=== PATIENT | female | born 1980 | race Caucasian/White ===

== ENCOUNTER 2016-09-11 21:53 | Emergency (ER) | payer OTHER ==
[2016-09-11 22:08] VITALS: BP 139/83; PULSE 73; RESP 18; TEMP 98.2
--- NOTE | 2016-09-11 22:22 | ED ---
General Adult HPI - General Chief complaint: Needlestick/Exposure Stated complaint: IHS/Needle Stick Time Seen by Provider: 09/11/16 22:08 Source: patient, RN notes reviewed Mode of arrival: ambulatory Limitations: no limitations - History of Present Illness Initial comments: 36-year-old female presents to the emergency department with a chief complaint of needle stick injury to the left hand. Patient states That work today. Patient states she noticed some throbbing to the hand. Patient states she has not had any other symptoms at this time. Patient is up-to-date on vaccinations. Patient denies any recent fever, chills, shortness of breath, chest pain, back pain, abdominal pain, nausea vomiting, numbness or tingling, dysuria or hematuria, constipation or diarrhea, headaches or visual changes, or any other current symptoms. - Related Data Home Medications Medication Instructions Recorded Confirmed Omeprazole 1 tab PO DAILY 09/11/16 09/11/16 Allergies Allergy/AdvReac Type Severity Reaction Status Date / Time No Known Allergies Allergy Verified 09/11/16 22:06 Review of Systems ROS Statement: Those systems with pertinent positive or pertinent negative responses have been documented in the HPI. ROS Other: All systems not noted in ROS Statement are negative. Past Medical History Past Medical History: GERD/Reflux History of Any Multi-Drug Resistant Organisms: None Reported Past Surgical History: Tonsillectomy Past Psychological History: No Psychological Hx Reported Smoking Status: Never smoker Past Alcohol Use History: None Reported Past Drug Use History: None Reported General Exam Limitations: no limitations General appearance: alert, in no apparent distress ENT exam: Present: normal exam, mucous membranes moist Neck exam: Present: normal inspection. Absent: tenderness, meningismus, lymphadenopathy Respiratory exam: Present: normal lung sounds bilaterally. Absent: respiratory distress, wheezes, rales, rhonchi, stridor Left Forearm Wrist exam: Present: normal inspection, full ROM. Absent: tenderness, swelling Hand Wrist exam: Present: full ROM, other (Does appear to have a puncture wound to the left home). Absent: tenderness, swelling Neurological exam: Present: alert, oriented X3 Psychiatric exam: Present: normal affect Skin exam: Present: warm, dry, intact, normal color. Absent: rash Course Vital Signs 09/11/16 22:06 Temperature 98.2 F Pulse Rate 73 Respiratory 18 Rate Blood Pressure 139/83 O2 Sat by Pulse 98 Oximetry - Reevaluation(s) Reevaluation #1: 09/11/16 22:33 Time we are pending patient's results. These will be followed up on. Medical Decision Making - Medical Decision Making 36-year-old female presents for needlestick injury. This time we fill out the appropriate paperwork. We did discuss follow-up and return parameters. We discussed all the patient's questions. She stated she understood all questions have been answered. She will be discharged home. Disposition Clinical Impression: Needlestick injury accident Disposition: HOME SELF-CARE Condition: Stable Instructions: Needle Stick Injuries (ED) Additional Instructions: Please follow up with family doctor if symptoms have not improved over the next two days. Please return to the emergency room if your symptoms increase or worsen or for any other concerns. Referrals: Latanya Guevara MD [Primary Care Provider] - 1-2 days Time of Disposition: 22:33
== END 2016-09-11 22:41 | disposition home or self-care (01) ==
LOC: EC 21:53
DX: S61.432A Puncture wound without foreign body of left hand, initial encounter (principal); Z77.21 Contact with and (suspected) exposure to potentially hazardous body fluids; W46.0XXA Contact with hypodermic needle, initial encounter; Y99.0 Civilian activity done for income or pay; Y92.69 Other specified industrial and construction area as the place of occurrence of the external cause
CPT/HCPCS: 99282

== ENCOUNTER 2018-11-19 10:57 | Emergency (ER) | payer OTHER ==
[2018-11-19 11:15] VITALS: BP 133/90; PULSE 78; RESP 20; TEMP 98.6
--- NOTE | 2018-11-19 11:33 | ED ---
General Adult HPI - General Chief complaint: Needlestick/Exposure Stated complaint: NEEDLESTICK Time Seen by Provider: 11/19/18 11:15 Source: patient, RN notes reviewed Mode of arrival: ambulatory Limitations: no limitations - History of Present Illness Initial comments: Alesha is a 38-year-old female with a past medical history of GERD who presents to the emergency department for a chief complaint of needle stick injury. 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 States she is here for blood testing. Denies any other complaints. States she is wanting to go back to work [employer].Patient has no other complaints at this time including shortness of breath, chest pain, abdominal pain, nausea or vomiting, headache, or visual changes. - Related Data Home Medications Medication Instructions Recorded Confirmed Apri 1 tab PO HS 11/19/18 11/19/18 Allergies Allergy/AdvReac Type Severity Reaction Status Date / Time No Known Allergies Allergy Verified 11/19/18 11:21 Review of Systems ROS Statement: Those systems with pertinent positive or pertinent negative responses have been documented in the HPI. ROS Other: All systems not noted in ROS Statement are negative. Past Medical History Past Medical History: GERD/Reflux History of Any Multi-Drug Resistant Organisms: None Reported Past Surgical History: Tonsillectomy Additional Past Surgical History / Comment(s): D&C Past Psychological History: No Psychological Hx Reported Smoking Status: Never smoker Past Alcohol Use History: Occasional Past Drug Use History: None Reported General Exam Limitations: no limitations General appearance: alert, in no apparent distress Head exam: Present: atraumatic, normocephalic, normal inspection Eye exam: Present: normal appearance, PERRL, EOMI. Absent: scleral icterus, conjunctival injection, periorbital swelling ENT exam: Present: normal exam, mucous membranes moist Neck exam: Present: normal inspection, full ROM. Absent: tenderness, meningismus, lymphadenopathy Respiratory exam: Present: normal lung sounds bilaterally. Absent: respiratory distress, wheezes, rales, rhonchi, stridor Cardiovascular Exam: Present: regular rate, normal rhythm, normal heart sounds. Absent: systolic murmur, diastolic murmur, rubs, gallop, clicks Extremities exam: Present: full ROM (Full range of motion in the left second digit), normal capillary refill (Capillary Refill less than 2 seconds, radial pulse 2+ and left upper extremity.), other (No significant injury noted to left second digit finger pad) Neurological exam: Present: alert, oriented X3, CN II-XII intact Psychiatric exam: Present: normal affect, normal mood Course Vital Signs 11/19/18 11:12 Temperature 98.6 F Pulse Rate 78 Respiratory 20 Rate Blood Pressure 133/90 O2 Sat by Pulse 98 Oximetry Medical Decision Making - Medical Decision Making Alesha is a 38-year-old female presenting to the emergency department with needlestick injury of the left second digit. 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 Patient's blood was drawn and sent to lab as well. Patient is up-to-date on tetanus. Examination does not reveal any obvious injury to the left second digit. Patient wishes to return back to work rather than wait for results in the ER. Patient will follow up on these results with lab. She will return here if she has any worsening symptoms or signs of infection. Disposition Clinical Impression: Needle stick injury of finger Disposition: HOME SELF-CARE Condition: Good Instructions (If sedation given, give patient instructions): Needle Stick Injuries (ED) Additional Instructions: Please follow up on lab results. Please follow up with primary care in 1-2 days. Return to the ER if you have any worsening symptoms or signs of infection. Is patient prescribed a controlled substance at d/c from ED?: No Referrals: Latanya Guevara MD [Primary Care Provider] - 1-2 days Time of Disposition: 11:32
== END 2018-11-19 11:50 | disposition home or self-care (01) ==
LOC: EC 10:57
DX: S61.201A Unspecified open wound of left index finger without damage to nail, initial encounter (principal); Z79.3 Long term (current) use of hormonal contraceptives; W46.0XXA Contact with hypodermic needle, initial encounter; Y92.234 Operating room of hospital as the place of occurrence of the external cause; Y99.0 Civilian activity done for income or pay
CPT/HCPCS: 99283

== ENCOUNTER → 2020-03-04 | Outpatient (CLI) | payer MEDICAID | END | disposition home or self-care (01) | LOC: LABWHC1 15:30 | PROVIDERS: ATTEND Pediatrics Pediatric Infectious Diseases | DX: Z03.818 Encounter for observation for suspected exposure to other biological agents ruled out (principal) | CPT/HCPCS: U0003; C9803 ==

== ENCOUNTER → 2020-03-09 | Outpatient (CLI) | payer MEDICAID | END | disposition home or self-care (01) | LOC: LABWHC1 10:21 | PROVIDERS: ATTEND Pediatrics Pediatric Infectious Diseases | DX: Z03.818 Encounter for observation for suspected exposure to other biological agents ruled out (principal) | CPT/HCPCS: U0003; C9803 ==

== ENCOUNTER → 2020-05-28 | Outpatient (CLI) | payer MEDICAID ==
--- NOTE | 2020-05-28 09:01 | MR ---
EXAMINATION TYPE: MR brain and iac wo/w con DATE OF EXAM: 05/28/2020 COMPARISON: NONE HISTORY: Vertigo TECHNIQUE: Multiplanar, multisequence images of the brain and brainstem as well as internal auditory canals are all performed without and with IV contrast, utilizing 8 mL intravenous Gadavist . FINDINGS: Diffusion weighted images demonstrate no evidence of a recent infarct or other diffusion ab normality. There is no worrisome extra-axial fluid collection. Ventricles and sulci within normal li mits in size for patient's age. Scattered foci of T2 hyperintensity are seen throughout the white mat ter bilaterally. Approximately 10 small to tiny scattered lesions. Lesions nonspecific in appearance and distribution. Midline structures demonstrate normal morphology. The craniocervical junction appears within normal limits. Post contrast images demonstrate no abnormal enhancement. The dural venous sinuses appear pa tent. The visualized sinuses are clear and the globes are intact. No suspicious fluid signal seen in the mastoid air cells bilaterally. The vestibulocochlear complexes are symmetric and felt within normal limits. There is no suspicious enhancing cerebellopontine angle mass identified bilaterally. IMPRESSION: No suspicious findings seen to cover patient's symptoms of vertigo. Mild nonspecific whit e matter changes without abnormal enhancement, Somewhat prominent for patient's chronologic age. Diff erential includes demyelinating disease, altered vascular mechanics were correlated to product of seda ailyn headaches, and infectious and/or inflammatory etiologies. Correlate clinically.
== END | disposition home or self-care (01) ==
LOC: RADMRIMAIN 07:40
PROVIDERS: ATTEND Otolaryngology Sleep Medicine
DX: R90.82 White matter disease, unspecified (principal)
CPT/HCPCS: 70553; A9585

== ENCOUNTER 2021-02-04 07:37 | Emergency (ER) | payer MEDICAID ==
[2021-02-04 07:40] VITALS: RESP 18; TEMP 99
[2021-02-04] MEDS ORDERED: KETOROLAC 15 MG/ML 1 ML VIAL IVP STA (07:52)
[2021-02-04] MEDS ORDERED: SODIUM CHLORIDE 0.9% 500 ML 500 ML IV STA (07:52)
--- NOTE | 2021-02-04 07:55 | ED ---
General Adult HPI - General Chief complaint: Abdominal Pain Stated complaint: abd pain Time Seen by Provider: 02/04/21 07:40 Source: patient, RN notes reviewed, old records reviewed Mode of arrival: ambulatory Limitations: no limitations - History of Present Illness Initial comments: This a 40-year-old female presents emergency Department complaining of right upper quadrant abdominal pain intermittently since January 14. Patient states the pain radiates around to her side and her back. Patient states she has been nauseous on occasion. Patient denies any fever chills. Patient denies any lower abdominal pain. Patient denies any dysuria hematuria urinary frequency. Patient denies chest pain or difficulty breathing - Related Data Home Medications Medication Instructions Recorded Confirmed Apri 1 tab PO HS 11/19/18 11/19/18 Allergies Allergy/AdvReac Type Severity Reaction Status Date / Time No Known Allergies Allergy Verified 11/19/18 11:21 Review of Systems ROS Statement: Those systems with pertinent positive or pertinent negative responses have been documented in the HPI. ROS Other: All systems not noted in ROS Statement are negative. Past Medical History Past Medical History: GERD/Reflux Additional Past Medical History / Comment(s): migraine based vertigo History of Any Multi-Drug Resistant Organisms: None Reported Past Surgical History: Tonsillectomy Additional Past Surgical History / Comment(s): D&C Past Psychological History: No Psychological Hx Reported Smoking Status: Never smoker Past Alcohol Use History: Occasional Past Drug Use History: None Reported General Exam - General Exam Comments Initial Comments: GENERAL: Patient is well-developed and well-nourished. Patient is nontoxic and well- hydrated and is in mild distress. ENT: Neck is soft and supple. No significant lymphadenopathy is noted. Oropharynx is clear. Moist mucous membranes. Neck has full range of motion without eliciting any pain. EYES: The sclera were anicteric and conjunctiva were pink and moist. Extraocular movements were intact and pupils were equal round and reactive to light. Eyel ids were unremarkable. PULMONARY: Unlabored respirations. Good breath sounds bilaterally. No audible rales rhonchi or wheezing was noted. CARDIOVASCULAR: There is a regular rate and rhythm without any murmurs gallops or rubs. ABDOMEN: Mild right upper quadrant abdominal pain SKIN: Skin is clear with no lesions or rashes and otherwise unremarkable. NEUROLOGIC: Patient is alert and oriented x3. Cranial nerves II through XII are grossly intact. Motor and sensory are also intact. Normal speech, volume and content. Symmetrical smile. MUSCULOSKELETAL: Normal extremities with adequate strength and full range of motion. LYMPHATICS: No significant lymphadenopathy is noted PSYCHIATRIC: Normal psychiatric evaluation. Limitations: no limitations Course Vital Signs 02/04/21 07:38 Temperature 99.0 F Pulse Rate 95 Respiratory 18 Rate Blood Pressure 159/99 O2 Sat by Pulse 99 Oximetry Medical Decision Making - Medical Decision Making Patient's ultrasound of the gallbladder was normal. One taken the room to reevaluate the patient she states she can feel the pain a little still but she was comfortable going home and follow-up with Dr. Dyer. Patient states she has appointment with her on Sunday. Patient understood that she could come back if she had increased pain or new symptoms. Patient did not want any pain meds or nausea meds to go home with. - Lab Data Result diagrams: 02/04/21 07:57 02/04/21 07:57 Lab Results 02/04/21 02/04/21 02/04/21 Range/Units 07:57 07:57 07:57 WBC 9.2 (3.8-10.6) k/uL RBC 4.91 (3.80-5.40) m/uL Hgb 13.5 (11.4-16.0) gm/dL Hct 40.8 (34.0-46.0) % MCV 83.0 (80.0-100.0) fL MCH 27.5 (25.0-35.0) pg MCHC 33.2 (31.0-37.0) g/dL RDW 13.1 (11.5-15.5) % Plt Count 300 (150-450) k/uL MPV 7.4 Neutrophils % 57 % Lymphocytes % 35 % Monocytes % 4 % Eosinophils % 2 % Basophils % 0 % Neutrophils # 5.2 (1.3-7.7) k/uL Lymphocytes # 3.2 (1.0-4.8) k/uL Monocytes # 0.4 (0-1.0) k/uL Eosinophils # 0.2 (0-0.7) k/uL Basophils # 0.0 (0-0.2) k/uL Sodium (137-145) mmol/L Potassium (3.5-5.1) mmol/L Chloride (98-107) mmol/L Carbon Dioxide (22-30) mmol/L Anion Gap mmol/L BUN (7-17) mg/dL Creatinine (0.52-1.04) mg/dL Est GFR (CKD-EPI)AfAm (>60 ml/min/1.73 sqM) Est GFR (CKD-EPI)NonAf (>60 ml/min/1.73 sqM) Glucose (74-99) mg/dL Plasma Lactic Acid Timothy (0.7-2.0) mmol/L Calcium (8.4-10.2) mg/dL Total Bilirubin (0.2-1.3) mg/dL AST (14-36) U/L ALT (4-34) U/L Alkaline Phosphatase (38-126) U/L Total Protein (6.3-8.2) g/dL Albumin (3.5-5.0) g/dL Amylase (30-110) U/L Lipase (23-300) U/L Urine Color Light Yellow Urine Appearance Clear (Clear) Urine pH 5.5 (5.0-8.0) Ur Specific [place] 1.009 (1.001-1.035) Urine Protein Negative (Negative) Urine Glucose (UA) Negative (Negative) Urine Ketones Negative (Negative) Urine Blood Small H (Negative) Urine Nitrite Negative (Negative) Urine Bilirubin Negative (Negative) Urine Urobilinogen <2.0 (<2.0) mg/dL Ur Leukocyte Esterase Negative (Negative) Urine RBC <1 (0-5) /hpf Urine WBC 1 (0-5) /hpf Ur Squamous Epith Cells 3 (0-4) /hpf Urine Bacteria Rare H (None) /hpf Urine Mucus Rare H (None) /hpf Urine HCG, Qual Not Detected (Not Detectd) 02/04/21 02/04/21 Range/Units 07:57 07:57 WBC (3.8-10.6) k/uL RBC (3.80-5.40) m/uL Hgb (11.4-16.0) gm/dL Hct (34.0-46.0) % MCV (80.0-100.0) fL MCH (25.0-35.0) pg MCHC (31.0-37.0) g/dL RDW (11.5-15.5) % Plt Count (150-450) k/uL MPV Neutrophils % % Lymphocytes % % Monocytes % % Eosinophils % % Basophils % % Neutrophils # (1.3-7.7) k/uL Lymphocytes # (1.0-4.8) k/uL Monocytes # (0-1.0) k/uL Eosinophils # (0-0.7) k/uL Basophils # (0-0.2) k/uL Sodium 139 (137-145) mmol/L Potassium 3.9 (3.5-5.1) mmol/L Chloride 107 (98-107) mmol/L Carbon Dioxide 20 L (22-30) mmol/L Anion Gap 12 mmol/L BUN 11 (7-17) mg/dL Creatinine 0.55 (0.52-1.04) mg/dL Est GFR (CKD-EPI)AfAm >90 (>60 ml/min/1.73 sqM) Est GFR (CKD-EPI)NonAf >90 (>60 ml/min/1.73 sqM) Glucose 101 H (74-99) mg/dL Plasma Lactic Acid Timothy 1.9 (0.7-2.0) mmol/L Calcium 9.3 (8.4-10.2) mg/dL Total Bilirubin 0.7 (0.2-1.3) mg/dL AST 18 (14-36) U/L ALT 14 (4-34) U/L Alkaline Phosphatase 48 (38-126) U/L Total Protein 7.1 (6.3-8.2) g/dL Albumin 4.1 (3.5-5.0) g/dL Amylase 106 (30-110) U/L Lipase 78 (23-300) U/L Urine Color Urine Appearance (Clear) Urine pH (5.0-8.0) Ur Specific [place] (1.001-1.035) Urine Protein (Negative) Urine Glucose (UA) (Negative) Urine Ketones (Negative) Urine Blood (Negative) Urine Nitrite (Negative) Urine Bilirubin (Negative) Urine Urobilinogen (<2.0) mg/dL Ur Leukocyte Esterase (Negative) Urine RBC (0-5) /hpf Urine WBC (0-5) /hpf Ur Squamous Epith Cells (0-4) /hpf Urine Bacteria (None) /hpf Urine Mucus (None) /hpf Urine HCG, Qual (Not Detectd) Disposition Clinical Impression: Right upper quadrant abdominal pain Disposition: HOME SELF-CARE Instructions (If sedation given, give patient instructions): Abdominal Pain (ED) Is patient prescribed a controlled substance at d/c from ED?: No Referrals: Latanya Guevara MD [Primary Care Provider] - 1-2 days Time of Disposition: 10:07
[2021-02-04 08:15] LABS: Basophils % (A) 0 %; Eosinophils # (A) 0.2 k/uL (0-0.7); Eosinophils % (A) 2 %; HCT 40.8 % (34.0-46.0); HGB 13.5 gm/dL (11.4-16.0); Lymphocytes # (A) 3.2 k/uL (1.0-4.8); Lymphocytes % (A) 35 %; MCH 27.5 pg (25.0-35.0); MCHC 33.2 g/dL (31.0-37.0); Mean Platelet Volume 7.4; Monocytes # (A) 0.4 k/uL (0-1.0); Monocytes % (A) 4 %; Neutrophils # (A) 5.2 k/uL (1.3-7.7); Neutrophils % (A) 57 %; Platelet Count 300 k/uL (150-450); RBC 4.91 m/uL (3.80-5.40); RDW 13.1 % (11.5-15.5); WBC 9.2 k/uL (3.8-10.6)
[2021-02-04 08:33] LABS: ALT 14 U/L (4-34); AST 18 U/L (14-36); African American GFR (CKD) >90 (>60 ml/min/1.73 sqM); Albumin 4.1 g/dL (3.5-5.0); Alkaline Phosphatase 48 U/L (38-126); Amylase 106 U/L (30-110); Anion Gap 12 mmol/L; Blood Urea Nitrogen 11 mg/dL (7-17); Calcium 9.3 mg/dL (8.4-10.2); Carbon Dioxide 20 mmol/L (22-30); Chloride 107 mmol/L (98-107); Glucose 101 mg/dL (74-99); Lipase 78 U/L (23-300); Non-African American GFR(CKD) >90 (>60 ml/min/1.73 sqM); Potassium 3.9 mmol/L (3.5-5.1); Sodium 139 mmol/L (137-145); Total Bilirubin 0.7 mg/dL (0.2-1.3); Total Protein 7.1 g/dL (6.3-8.2)
--- NOTE | 2021-02-04 09:11 | US ---
EXAMINATION TYPE: US gallbladder DATE OF EXAM: 02/04/2021 COMPARISON: NONE CLINICAL HISTORY: Right upper quadrant abdominal pain. EXAM MEASUREMENTS: Liver Length: 14.5 cm Gallbladder Wall: 0.2 cm CBD: 0.3 cm Right Kidney: 10.2x4.6x4.3 cm Pancreas: wnl in its visualized portions Liver: wnl , there is no dilated intra or extrahepatic biliary duct Gallbladder: wnl Evidence for sonographic Emerson's sign: No CBD: wnl Right Kidney: wnl There is no ascites. IMPRESSION: No abnormality evident to account for patient's symptoms, somewhat limited exam
--- NOTE | 2021-02-04 09:42 | XR ---
KUB HISTORY: Nausea and pain Frontal KUB and 2 images There are overlying artifacts. Lung bases are clear. There is no evident bowel obstruction or pneumop eritoneum. There are air-fluid levels without bowel distention. There is a slight spinal curvature. N o abnormal calcification. IMPRESSION: Correlate for enteritis or ileus. Follow-up as indicated.
[2021-02-04 09:47] LABS: Appearance,Urine Clear (Clear); Bacteria,Urine Rare /hpf; Bilirubin,Urine Negative (Negative); Blood,Urine Small (Negative); Color,Urine Light Yellow; Glucose,Urine (UA) Negative (Negative); Ketones,Urine Negative (Negative); Leukocyte Esterase,Urine Negative (Negative); Mucus,Urine Rare /hpf; Nitrite,Urine Negative (Negative); PH, Urine 5.5 (5.0-8.0); Protein,Urine Negative (Negative); RBC,Urine <1 /hpf (0-5); Specific Gravity,Urine 1.009 (1.001-1.035); Squamous Epithelial Cell,Urine 3 /hpf (0-4); Urobilinogen,Urine <2.0 mg/dL (<2.0); WBC,Urine 1 /hpf (0-5)
[2021-02-04 10:34] VITALS: BP 125/93; PULSE 80
== END 2021-02-04 10:34 | disposition home or self-care (01) ==
LOC: EC 07:37
DX: R10.11 Right upper quadrant pain (principal); K21.9 Gastro-esophageal reflux disease without esophagitis
CPT/HCPCS: 36415; 74018; 76705; 80053; 81001; 81025; 82150; 83605; 83690; 85025; 99284

== ENCOUNTER 2021-02-11 06:15 | Day surgery (SDC) | payer MEDICAID ==
[2021-02-09 10:31] VITALS: BMI 31.4
[~2021-02-11 06:15] MED LIST: HEPARIN SODIUM,PORCINE/PF 5,000 UNIT/0.5 ML SYRINGE SQ PRN
[2021-02-11] MEDS ORDERED: MIDAZOLAM 2 MG/2 ML VIAL IV PRN (06:26)
[2021-02-11] MEDS ORDERED: ONDANSETRON 4 MG/2 ML VIAL IVP ONE ×2 (06:26→09:07)
[2021-02-11] MEDS ORDERED: DEXAMETHASONE SOD PHOSPHATE 4 MG/ML 1 ML VIAL IV ONE (06:26)
[2021-02-11] MEDS ORDERED: SCOPOLAMINE 1.5MG/72HR PATCH TRANSDERM ONE (06:26)
[2021-02-11] MEDS: LACTATED RINGERS 1,000 ML IV SCH ×2 (07:04→11:35)
[2021-02-11] MEDS ORDERED: LIDOCAINE 1% (10MG/ML) FOR IV START INTRADERMA ONE (07:05)
[2021-02-11] MEDS ORDERED: PROPOFOL 10 MG/ML 20 ML VIAL IV ONE (07:30)
[2021-02-11] MEDS ORDERED: ROCURONIUM 10 MG/ML (5 ML VIAL) IV ONE (07:30)
[2021-02-11] MEDS ORDERED: INDOCYANINE GREEN 25 MG VIAL IV ONE (07:30)
[2021-02-11] MEDS ORDERED: GLYCOPYRROLATE 0.2 MG/ML 2 ML VIAL ONE (07:30)
[2021-02-11] MEDS ORDERED: fentaNYL (PF) 50 MCG/ML 2 ML AMP ONE (07:30)
[2021-02-11] MEDS ORDERED: MIDAZOLAM 2 MG/2 ML VIAL ONE (07:30)
[2021-02-11] MEDS ORDERED: NEOSTIGMINE 1 MG/ML 10 ML VIAL ONE (07:30)
[2021-02-11] MEDS ORDERED: SUCCINYLCHOLINE CHLORIDE 100 MG/5 ML SYR IV ONE (07:30)
[2021-02-11] MEDS ORDERED: HYDROmorphone (PF) 1 MG/ML ONE (07:30)
[2021-02-11] MEDS ORDERED: KETOROLAC 15 MG/ML 1 ML VIAL ONE (07:30)
[2021-02-11] MEDS ORDERED: LIDOCAINE 1% INJ 10MG/ML (20 ML MDV) ONE (07:30)
--- NOTE | 2021-02-11 07:58 | P.GSHP ---
History of Present Illness H&P Date: 02/11/21 CHIEF COMPLAINT: Cholecystitis HISTORY OF PRESENT ILLNESS: The patient is a 40-year-old female who presents with history of epigastric including right upper quadrant abdominal pain. She underwent diagnostic studies for the gallbladder. Separately her clinical picture is consistent with cholecystitis. Now she presents for surgical intervention. PAST MEDICAL HISTORY: Please see list PAST SURGICAL HISTORY: Please see list MEDICATIONS: Please see list ALLERGIES: Denies. SOCIAL HISTORY: No illicit drug use or recent tobacco use FAMILY HISTORY: Pertinent for gallbladder disease REVIEW OF ORGAN SYSTEMS: CONSTITUTIONAL: No reports of fevers or chills. HEENT: Denies any troubles with the vision or hearing. ENDOCRINE: Denies hypothyroidism. No diabetes. RESPIRATORY: No recent pneumonias. CARDIOVASCULAR: Denies chest pain or palpitations. Has hypertensive heart disease. GI: No blood in stools or constipation. MUSCULOSKELETAL: Has occasional joint pain including back pain. NEURO: No seizure disorders or headaches. No recent stroke. PSYCH: No depression or suicidal ideation. HEMATOLOGIC: No personal or family history of DVTs or pulmonary emboli. PHYSICAL EXAM: VITAL SIGNS: Afebrile vital signs stable GENERAL: Well-developed pleasant male in no acute distress. HEENT: No scleral icterus. Extraocular movements grossly intact. Moist buccal mucosa. NECK: Supple without lymphadenopathy. CHEST: Unlabored respirations. Equal bilateral excursions. CARDIOVASCULAR: Regular rate regular rhythm rhythm. Distal 2+ pulses. ABDOMEN: Soft, nondistended. Tender right upper quadrant. MUSCULOSKELETAL: No clubbing, cyanosis, or edema. NEURO : No focal or lateralizing signs. Cranial nerves II-12 within normal limits. PSYCH: Alert and oriented to person, place and time. SKIN: Well perfused. Good skin turgor. ASSESSMENT: 1. Chronic cholecystitis PLAN: 1. Will need a robotic cholecystectomy possible open. Benefits and risks were described. 2. Heparin for DVT prophylaxis 5000 units. 3. Antibiotic prophylaxis. 4 Past Medical History Past Medical History: GERD/Reflux Additional Past Medical History / Comment(s): migraine based vertigo, gallbladder- nonfunctioning, elevated triglycerides, "pre cervical cancer" History of Any Multi-Drug Resistant Organisms: None Reported Past Surgical History: Tonsillectomy Additional Past Surgical History / Comment(s): D&C Past Anesthesia/Blood Transfusion Reactions: Family History of Problems w/ Anesthesia, Motion Sickness Additional Past Anesthesia/Blood Transfusion Reaction / Comment(s): both parents get laryngospasm Smoking Status: Never smoker - Past Family History Mother Family Medical History: Cancer Medications and Allergies Home Medications Medication Instructions Recorded Confirmed Type Ascorbic Acid [Vitamin C] 500 mg PO DAILY 02/09/21 02/11/21 History Cholecalciferol (Vitamin D3) 250 mcg PO DAILY 02/09/21 02/11/21 History [Vitamin D3 (125 MCG = 5,000 IU)] Cyanocobalamin (Vitamin B-12) 5,000 mcg PO DAILY 02/09/21 02/11/21 History [Vitamin B12] Enskyce 1 tab PO HS 02/09/21 02/11/21 History Magnesium 250 mg PO DAILY 02/09/21 02/11/21 History [place]-3 Fatty Acids/Fish Oil [Fish 1 each PO DAILY 02/09/21 02/11/21 History Oil 1,000 mg Softgel] Sumatriptan(Dose Unknown) 1 tab PO DIRECTED PRN 02/09/21 02/11/21 History Allergies Allergy/AdvReac Type Severity Reaction Status Date / Time No Known Allergies Allergy Verified 02/11/21 06:57 Surgical - Exam Vital Signs Temp Pulse Resp BP Pulse Ox 97.3 F L 94 16 130/80 98 02/11/21 06:55 02/11/21 06:55 02/11/21 06:55 02/11/21 06:55 02/11/21 06:55
[2021-02-11] MEDS ORDERED: LIDOCAINE 1%-EPI 1:100,000 20 ML VIAL SQ ONE (08:11)
[2021-02-11 09:03] VITALS: TEMP 98.4
[2021-02-11] MEDS ORDERED: ONDANSETRON 4 MG/2 ML VIAL ONE (09:04)
[2021-02-11] MEDS ORDERED: DEXAMETHASONE SOD PHOSPHATE 10 MG/ML 1 ML VIAL IV PRN (09:07)
[2021-02-11] MEDS: HYDROmorphone 0.5 MG/0.5 ML SYRINGE IVP PRN ×2 (09:08→09:17)
[2021-02-11] MEDS ORDERED: GABAPENTIN 300 MG CAP PO ONE (09:09)
[2021-02-11] MEDS ORDERED: KETOROLAC 15 MG/ML 1 ML VIAL IVP SCH (09:09)
--- NOTE | 2021-02-11 09:14 | P.OP ---
Date of Procedure: 02/11/21 Description of Procedure: SURGEON: JENNIFER HERNANDEZ MD PREOPERATIVE DIAGNOSES: 1. Chronic cholecystitis 2. Right upper quadrant abdominal pain 3. Family history gallbladder disease 4. Obesity due to excess calories, BMI 31.9 5. Migraines 6. Family history ovarian cancer POSTOPERATIVE DIAGNOSES: 1. Chronic cholecystitis 2. Right upper quadrant abdominal pain 3. Family history gallbladder disease 4. Obesity due to excess calories, BMI 31.9 5. Migraines 6. Family history ovarian cancer OPERATION: Robotic-assisted da Liliana Xi laparoscopic cholecystectomy, multiport with FIREFLY ESTIMATED BLOOD LOSS: 5 mL. SPECIMENS REMOVED: Gallbladder. COMPLICATIONS: None. OPERATIVE FINDINGS: 1. Bulbous gallbladder features of chronic cholecystitis 2. Uterus unremarkable 3. Bilateral ovaries unremarkable INDICATIONS: The patient is a 40-year-old female who presents with chronic cholecystitis including right upper quadrant abdominal pain. Robotic assisted laparoscopic approach was described. Benefits and risks of the procedure including but not limited to bleeding, infection, injury to the biliary tree was described. Informed consent was obtained. DESCRIPTION OF PROCEDURE: Patient was brought to the operating room, placed in supine position. After general induction, the abdomen had been prepped and draped in standard sterile fashion. The robotic da Liliana XI system was primed. After a timeout protocol was performed, the patient had been prepped and draped in standard sterile fashion. The patient was injected with indocyanine green. A 5 mm 0 degrees laparoscopic trocar entry was performed along the left upper quadrant. The abdomen insufflated to 15 mmHg pressure which was tolerated well. Diagnostic laparoscopy demonstrated no injury to bowel viscera or mesentery. The liver surface was unremarkable. Next, two 8 mm robotic ports were placed al antolin the right upper abdomen. The camera 8-mm port was maintained along the epigastrium. Another 8 mm port was placed along the left upper abdominal wall after exchanging the 5 mm port. Please note that the ports were placed at least 10 to 15 cm away from the target anatomy of the gallbladder. The robot was docked along the left lateral abdomen. The patient was repositioned in reverse Trendelenburg position. Using a grasper for arm 3, a grasper for arm 4, including hook cautery for arm 1, the robotic system was docked and primed as described. Instruments were interchanged by the video library assistant including hook cautery, Bovie cautery and clip appliers. I had sat at the console. Next attention was brought to the infundibulum and cystic structures. The infundibulum and cystic duct were dissected free from surrounding tissues. The cystic duct was isolated. The gallbladder was bulbous in appearance. FIREFLY was used to identify the cystic artery and cystic structures. A critical view of safety was obtained. Large PLASTIC clips were used throughout the entire case. Using a clip mortgage loan officer, 2 clips were placed at the junction of the infundibulum and cystic duct. The cystic duct was divided between clips. Next, the cystic artery was similarly clipped and cauterized. Electro-Bovie cautery was used to remove the gallbladder from the hepatic fossa. Hemostasis was checked and found to be adequate. The robot was undocked. I re-scrubbed into the case. The lower abdomen was reviewed including pelvis where the ovaries and uterus were unremarkable in appearance. Using a 10 mm Endo Catch bag via the left upper quadrant incision, the specimen was removed from the abdominal cavity. All pneumoperitoneum instruments were evacuated from the abdominal cavity. The incisions were reapproximated using 4-0 Monocryl in an interrupted subcuticular fashion. Fascial defects were less than 8 mm in size. Please note along the trocar sites, local anesthetic was placed as a field block prior to insertion of all instruments. Liquid glue was applied to the skin. At the end of the procedure needle, sponge, and instrument count had been verified correct by the surgical physician assistant. The patient was transferred to postanesthesia care unit in stable condition. Intraoperative films were shared with the patient's family. Plan - Discharge Summary Discharge Rx Participant: Yes New Discharge Prescriptions: New Ibuprofen [Motrin] 600 mg PO Q8HR PRN #30 tab PRN Reason: Pain Omeprazole [PriLOSEC] 40 mg PO DAILY #14 cap Acetaminophen Tab [Tylenol Tab] 1,000 mg PO Q6HR PRN #30 tablet PRN Reason: Pain Simethicone [Gas-X] 125 mg PO AC-TID PRN #20 cap PRN Reason: Pain Continue Alvin-3 Fatty Acids/Fish Oil [Fish Oil 1,000 mg Softgel] 1 each PO DAILY Enskyce 1 tab PO HS Magnesium 250 mg PO DAILY Cholecalciferol (Vitamin D3) [Vitamin D3 (125 MCG = 5,000 IU)] 250 mcg PO DAILY Ascorbic Acid [Vitamin C] 500 mg PO DAILY Cyanocobalamin (Vitamin B-12) [Vitamin B12] 5,000 mcg PO DAILY Sumatriptan(Dose Unknown) 1 tab PO DIRECTED PRN PRN Reason: migraines Discharge Medication List Ascorbic Acid [Vitamin C] 500 mg PO DAILY 02/09/21 [History] Cholecalciferol (Vitamin D3) [Vitamin D3 (125 MCG = 5,000 IU)] 250 mcg PO DAILY 02/09/21 [History] Cyanocobalamin (Vitamin B-12) [Vitamin B12] 5,000 mcg PO DAILY 02/09/21 [History] Enskyce 1 tab PO HS 02/09/21 [History] Magnesium 250 mg PO DAILY 02/09/21 [History] Alvin-3 Fatty Acids/Fish Oil [Fish Oil 1,000 mg Softgel] 1 each PO DAILY 02/09/21 [History] Sumatriptan(Dose Unknown) 1 tab PO DIRECTED PRN 02/09/21 [History] Acetaminophen Tab [Tylenol Tab] 1,000 mg PO Q6HR PRN #30 tablet 02/11/21 [Rx] Ibuprofen [Motrin] 600 mg PO Q8HR PRN #30 tab 02/11/21 [Rx] Omeprazole [PriLOSEC] 40 mg PO DAILY #14 cap 02/11/21 [Rx] Simethicone [Gas-X] 125 mg PO AC-TID PRN #20 cap 02/11/21 [Rx] Follow up Appointment(s)/Referral(s): Jennifer Hernandez MD [STAFF PHYSICIAN] - 02/22/21 Patient Instructions/Handouts: Laparoscopic Cholecystectomy (DC), Low Fat Diet (DC), *[facility] - Managing Your Pain After Surgery Without Opioids Activity/Diet/Wound Care/Special Instructions: Recommend low-fat diet for the next 2 days. No lifting over 10 pounds in 2 weeks until Feb 25. May shower. No bath tub soaks for two weeks until Feb 25. Diet as tolerated. Use Tylenol, simethicone and ibuprofen or Aleve scheduled for the next 24-48 hours for best pain relief. Use ice along incisions for today to prevent swelling. Discharge Disposition: HOME SELF-CARE
[2021-02-11 09:15] VITALS: RESP 16
[2021-02-11] MEDS ORDERED: SIMETHICONE 80 MG CHEWABLE PO SCH (09:15)
[2021-02-11] MEDS ORDERED: diphenhydrAMINE 50 MG/ML 1 ML VIAL ONE (09:52)
[2021-02-11] MEDS ORDERED: diphenhydrAMINE 50 MG/ML 1 ML VIAL IVP ONE (09:53)
[2021-02-11] MEDS ORDERED: TRIMETHOBENZAMIDE 100 MG/ML 2 ML VIAL IM PRN (10:38)
[2021-02-11 12:07] VITALS: BP 107/70; PULSE 111
== END 2021-02-11 12:40 | disposition home or self-care (01) ==
LOC: OR 06:15
PROVIDERS: ATTEND Surgery Plastic and Reconstructive Surgery
DX: K81.1 Chronic cholecystitis (principal); K21.9 Gastro-esophageal reflux disease without esophagitis; K82.9 Disease of gallbladder, unspecified; E66.09 Other obesity due to excess calories; Z68.31 Body mass index [BMI] 31.0-31.9, adult; G43.909 Migraine, unspecified, not intractable, without status migrainosus; Z98.890 Other specified postprocedural states; Z83.79 Family history of other diseases of the digestive system; Z80.41 Family history of malignant neoplasm of ovary
CPT/HCPCS: 81025; 88304; 47563; J2250; J1200; J1100 ×2; J2710; J2405; J2001; J3010; J1170 ×2; J1885; J0330; J2704; J1644

== ENCOUNTER → 2024-08-26 | Outpatient (CLI) | payer MEDICAID ==
--- NOTE | 2024-08-26 18:41 | US ---
EXAMINATION TYPE: US pelvis complete transvag DATE OF EXAM: 08/26/2024 COMPARISON: NONE CLINICAL INDICATION: Female, 44 years old with history of N92.6 IRREG MENSTRATION; irregular menses TECHNIQUE: Transvaginal (TV) and Transabdominal (TA) . Doppler imaging: Not performed. FINDINGS: EXAM MEASUREMENTS: Uterus: 9.2 x 3.3 x 6.2 cm Endometrial Stripe: .6 cm Right Ovary: 2.8 x 1.3 x 2.3 cm Left Ovary: 2.3 x 1.6 x 2.3 cm 1. Uterus: Anteverted wnl 2. Endometrium: wnl 3. Right Ovary: wnl 4. Left Ovary: wnl 5. Bilateral Adnexa: wnl 6. Posterior cul-de-sac: wnl IMPRESSION: 1. No acute pelvic ultrasound abnormality O-RADS 2021 [email or web address] [email or web address], , 08/26/2024 6:38 PM
== END | disposition home or self-care (01) ==
LOC: RADUSWWP 15:44
PROVIDERS: ATTEND Internal Medicine
DX: N92.6 Irregular menstruation, unspecified (principal)
CPT/HCPCS: 76830; 76856